=== PATIENT | female | born 1990 | race Caucasian/White ===

== ENCOUNTER → 2016-04-01 | Outpatient (CLI) | payer BC ==
[2016-04-01 17:12] LABS: CH 30.6; CHCM 34.6; HCT 39.5 % (34.0-46.0); HDW 2.53; HGB 13.7 gm/dL (11.4-16.0); MCH 30.7 pg (25.0-35.0); MCHC 34.6 g/dL (31.0-37.0); MCV 88.8 fL (80.0-100.0); Mean Platelet Volume 7.8; RBC 4.45 m/uL (3.80-5.40); WBC 10.6 k/uL (3.8-10.6)
[2016-04-01 17:22] LABS: Glucose 73 mg/dL (74-99); Non-African American GFR(MDRD) >60 (>60 ml/min/1.73 sqM)
[2016-04-01 17:53] LABS: Hepatitis B Surface Ag Index 0.08
--- NOTE | 2016-04-02 07:22 | US ---
EXAMINATION TYPE: US OB anatomy transabd DATE OF EXAM: 04/01/2016 4:37 PM COMPARISON: No previous HISTORY: Large for dates TECHNIQUE: Transabdominal (TA) EXAM MEASUREMENTS: GESTATIONAL AGE / DATING Physician Established: (19 weeks/2 days) EDC: 08/24/2016 Dates by LMP: Unknown Dates by First Scan: No previous here Dates by Current Scan for: (18 weeks/1 days) EDC: 09/01/2016 SURVEY IUP: Single PLACENTA: Posterior PREVIA: No previa FARRAH: 12.8 cm Normal CERVICAL LENGTH (transabdominal: norm > 3.0cm): 4.6 cm BIOMETRY PRESENTATION: Breech LIE: Transverse lie with head maternal left BPD: 3.9 cm 18 weeks / 0 days HC: 14.4 cm 17 weeks / 5 days AC: 12.3 cm 18 weeks / 0 days FL: 2.8 cm 18 weeks / 4 days ESTIMATED WEIGHT IN GRAMS: 227 grams ESTIMATED WEIGHT IN LBS/OZS: 0 lbs. 8 oz. WEIGHT PERCENTAGE BASED ON ESTABLISHED DATE: 5% HC/AC: 1.17 FL/AC: 23% HEART RATE: 167 bpm RHYTHM: Normal ANATOMY SEEN (within normal limits): * Lateral Vent (< 1 cm) 0.7 cm * Cisterna Magna (< 1.1 cm) 0.5 cm * Nuchal Fold (< 0.6 cm) 0.3 cm * Cerebellum (varies with age) 1.6 cm Choroid Plexus (bilateral) Midline Falx Cavus Septi Pellucidi Four Chamber Heart Outflow tracts: LVOT/RVOT Stomach Situs Nose / Lips Diaphragm Kidneys (bilateral) Bladder Cord Insert Three Vessel Cord Longitudinal Spine Transverse Spine Arms (bilateral) Legs (bilateral) Impression: Viable single IUP measuring 18 weeks 1 day with a heart rate of 167bpm and an estimated d elivery date of 09/01/2016
[2016-04-03 07:24] LABS: HIV-1/HIV-2 Ab Screen NONREAC (NON REAC)
== END | disposition home or self-care (01) ==
LOC: RADUSWWP 15:22
PROVIDERS: ATTEND Obstetrics & Gynecology
DX: O36.62X0 Maternal care for excessive fetal growth, second trimester, not applicable or unspecified (principal); Z3A.18 18 weeks gestation of pregnancy
CPT/HCPCS: 76811; 81220; 82105; 82565; 82677; 82947; 84702; 85027; 86336; 86762; 86780; 86850; 86900; 86901; 87340; 87389

== ENCOUNTER → 2016-04-27 | Outpatient (CLI) | payer BC ==
--- NOTE | 2016-04-27 13:40 | US ---
EXAMINATION TYPE: US OB anatomy transabd DATE OF EXAM: 04/27/2016 12:56 PM COMPARISON: See PACS HISTORY: SGA TECHNIQUE: Transabdominal (TA) FINDINGS: EXAM MEASUREMENTS: GESTATIONAL AGE / DATING Physician Established: (21 weeks/6 days) (reassigned on 04/01/16) EDC: 09/01/16 Dates by LMP: pt unsure Dates by First Scan: (21 weeks/6 days) EDC: 09/08/16 Dates by Current Scan: (20 weeks/6 days +/- 1W) EDC: 09/08/16 SURVEY IUP: Single PLACENTA: Posterior PREVIA: No previa FARRAH: 12.3 cm CERVICAL LENGTH (transabdominal: norm > 3.0cm): 4.3 cm BIOMETRY PRESENTATION: Breech BPD: 4.9 cm 21 weeks / 0 days HC: 18.6 cm 20 weeks / 6 days AC: 16.8 cm 21 weeks / 6 days FL: 3.4 cm 20 weeks / 6 days ESTIMATED WEIGHT IN GRAMS: 414.7 grams ESTIMATED WEIGHT IN LBS/OZS: 0 lbs. 15 oz. WEIGHT PERCENTAGE BASED ON ESTABLISHED DATE: 19 % HC/AC: 1.1 FL/AC: 20.5 HEART RATE: 163 bpm RHYTHM: Normal ANATOMY SEEN (within normal limits): Lateral Vent (< 1 cm) 7.9 mm Cisterna Magna Nuchal Fold (< 0.6 cm) 4.4 mm Cerebellum (varies with age) Choroid Plexus (bilateral) Midline Falx Cavus Septi Pellucidi Stomach Arms (bilateral) ANATOMY NOT SEEN or SUBOPTIMALLY VISUALIZED: Four Chamber Heart Outflow tracts: LVOT/RVOT Situs Bladder Longitudinal Spine Transverse Spine Three Vessel Cord Cord Insert Legs (bilateral) Nose / Lips Diaphragm Kidneys (bilateral) IMPRESSION: 1. Single live intrauterine with gestational age of 21 weeks 6 days as reassigned based on ultrasound of 04/01/2016. 2. Current ultrasound biometry places the gestational age at 20 weeks 6 days which is at the lower li mits of normal and just barely concordant. Current EFW relative to the reassigned gestational age is at the 19th percentile. Continued follow-up recommended.
== END | disposition home or self-care (01) ==
LOC: RADUSWWP 12:10
PROVIDERS: ATTEND Obstetrics & Gynecology
DX: O36.5920 Maternal care for other known or suspected poor fetal growth, second trimester, not applicable or unspecified (principal); Z3A.21 21 weeks gestation of pregnancy
CPT/HCPCS: 76811

== ENCOUNTER → 2016-05-25 | Outpatient (CLI) | payer BC ==
[2016-05-25 14:42] LABS: CH 31.1; CHCM 33.4; HCT 39.3 % (34.0-46.0); HDW 2.48; HGB 13.1 gm/dL (11.4-16.0); MCH 31.1 pg (25.0-35.0); MCHC 33.2 g/dL (31.0-37.0); MCV 93.6 fL (80.0-100.0); Mean Platelet Volume 8.7; RDW 13.4 % (11.5-15.5); WBC 12.9 k/uL (3.8-10.6)
== END | disposition home or self-care (01) ==
LOC: LABWHC1 13:22
PROVIDERS: ATTEND Obstetrics & Gynecology
DX: Z34.02 Encounter for supervision of normal first pregnancy, second trimester (principal); Z3A.00 Weeks of gestation of pregnancy not specified
CPT/HCPCS: 36415; 82950; 85027

== ENCOUNTER 2016-08-17 10:32 | Outpatient (CLI) | payer BC ==
[2016-08-17 10:43] VITALS: BP 140/89; PULSE 86; TEMP 97.8
[2016-08-17 11:38] VITALS: RESP 18
--- NOTE | 2016-08-17 17:38 | P.MSEPDOC ---
Presenting Problems - Arrival Data Date of Arrival on Unit: 08/17/16 Time of Arrival on Unit: 10:36 Mode of Transport: Ambulatory - Complaint OB-Reason for Admission/Chief Complaint: Rule Out SROM Comment: Pt here complaining of increase in vagnial fluid that started during the night Medical History - Information : 1 Para: 0 Term: 0 : 0 Abortions: Spontaneous or Elective: 0 Number of Living Children: 0 - Gestational Age Expected Date of Delivery: 08/28/16 Gestational Age by LESLI (wks/days): 38 Weeks and 3 Days Review of Systems - Review of Systems Constitutional: No problems Breast: No problems ENT: No problems Cardiovascular: No problems Respiratory: No problems Gastrointestinal: No problems Genitourinary: No problems Musculoskeletal: No problems Neurological: No problems Skin: No problems Vital Signs - Temperature Temperature: 97.8 F Temperature Source: Oral - Pulse Brachial Pulse Rate: 86 Pulse Assessment Method: Automatic Cuff - Respirations Respiratory Rate: 18 Oxygen Delivery Method: Room Air - Blood Pressure Right Arm Sitting Blood Pressure: 140/89 Blood Pressure Mean: 106 Blood Pressure Source: Automatic Cuff Medical Screen Scoring (Pre) - Cervical Exam Dilation: 1-3 cm = 1 Effacement: More than 50% = 2 Membranes: Intact - Uterine Contractions Frequency: > 5 minutes apart = 1 Duration: > 40 seconds = 2 - Maternal Vital Signs Maternal Temperature: N/A Maternal Blood Pressure: N/A Signs of Preeclampsia: N/A Maternal Respirations: N/A - Maternal Trauma Maternal Trauma: N/A - Assessment Baseline FHR: 130 Heart Rate - NICHD Category: Category I (Normal) = 0 NST: Reactive Position: N/A - Total Score Total Score (Pre): 6 - Level of Risk Level of Risk: Medium (6-9) Physician Notification (Pre) - Physician Notified Physician Notified Date: 08/17/16 Physician Notified Time: 11:19 Physician/Practitioner Notifed:: Dr Bruno Spoke With: Dr Bruno New Order Received: Yes - Notification Comment Comment: Amnisure negative, no leaking of fluids noted during or after vaginal exam. Medical Screen Scoring (Post) - Cervical Exam Dilation: 1-3 cm = 1 Effacement: More than 50% = 2 Membranes: Intact - Uterine Contractions Frequency: > 5 minutes apart = 1 Duration: > 40 seconds = 2 Intensity: N/A - Maternal Vital Signs Maternal Temperature: N/A Maternal Blood Pressure: N/A Signs of Preeclampsia: N/A Maternal Respirations: N/A - Maternal Trauma Maternal Trauma: N/A - Assessment Heart Rate: 130 Heart Rate - NICHD Category: Category I (Normal) = 0 NST: Reactive Position: N/A Station: N/A - Total Score Total Score (Post): 6 - Post Treatment Level of Risk Post Treatment Level of Risk: Medium (6-9) Physician Notification (Post) - Physician Notified Physician Notified Date: 08/17/16 Physician Notified Time: 11:19 Spoke With: Dr Bruno - Notification Comment Comment: Negative Amnisure Disposition - Disposition OB Disposition: Discharge to home Discharge Date: 08/17/16 Discharge Time: 11:25 I agree with the RN Medical Screening Exam: Yes Risk & Benefit of care provided described in d/c instruction: Yes Diagnosis: FALSE LABOR AT OR AFTER 37 COMPLETED WEEKS OF GESTATION
== END 2016-08-17 11:25 | disposition home or self-care (01) ==
LOC: FBPOP 10:32
PROVIDERS: ATTEND Obstetrics & Gynecology
DX: O47.1 False labor at or after 37 completed weeks of gestation (principal); Z3A.38 38 weeks gestation of pregnancy
CPT/HCPCS: 59025; 84112; 99213

== ENCOUNTER 2016-08-21 22:51 | Outpatient (CLI) | payer BC ==
[2016-08-21 23:07] VITALS: BP 141/82; PULSE 73; RESP 16; TEMP 97
--- NOTE | 2016-10-06 17:40 | P.MSEPDOC ---
Presenting Problems - Arrival Data Date of Arrival on Unit: 08/21/16 Time of Arrival on Unit: 22:51 Mode of Transport: Wheelchair - Complaint OB-Reason for Admission/Chief Complaint: Possible Onset of Labor Comment: Contractions that started around 1900 that have gotten progressively closer together and stronger in nature. Medical History - Information : 1 Para: 0 Term: 0 : 0 Abortions: Spontaneous or Elective: 0 Number of Living Children: 0 - Gestational Age Expected Date of Delivery: 09/01/16 Gestational Age by LESLI (wks/days): 45 Weeks and 0 Days Review of Systems - Review of Systems Constitutional: No problems Breast: No problems ENT: No problems Cardiovascular: No problems Respiratory: No problems Gastrointestinal: No problems Genitourinary: No problems Musculoskeletal: No problems Neurological: No problems Skin: No problems Vital Signs - Temperature Temperature: 97.0 F Temperature Source: Temporal Artery Scan - Pulse Pulse Oximetery Pulse Rate: 73 Pulse Assessment Method: Automatic Cuff - Respirations Respiratory Rate: 16 Oxygen Delivery Method: Room Air - Blood Pressure Sitting Blood Pressure: 141/82 Blood Pressure Mean: 101 Blood Pressure Source: Automatic Cuff Medical Screen Scoring (Pre) - Cervical Exam Dilation: 1-3 cm = 1 Membranes: Intact - Uterine Contractions Frequency: N/A Duration: N/A Intensity: N/A - Maternal Vital Signs Maternal Temperature: N/A Maternal Blood Pressure: N/A Signs of Preeclampsia: N/A Maternal Respirations: N/A - Maternal Trauma Maternal Trauma: N/A - Assessment Baseline FHR: 145 Heart Rate - NICHD Category: Category I (Normal) = 0 NST: Reactive Position: N/A Station: N/A - Total Score Total Score (Pre): 1 - Level of Risk Level of Risk: Low (0-5) Medical Screen Scoring (Post) - Cervical Exam Dilation: 1-3 cm = 1 Effacement: More than 50% = 2 Membranes: Intact - Uterine Contractions Frequency: N/A Duration: N/A Intensity: N/A - Maternal Vital Signs Maternal Temperature: N/A Maternal Blood Pressure: N/A Signs of Preeclampsia: N/A Maternal Respirations: N/A - Maternal Trauma Maternal Trauma: N/A - Assessment Heart Rate: 150 Heart Rate - NICHD Category: Category I (Normal) = 0 NST: Reactive Position: N/A Station: N/A - Total Score Total Score (Post): 3 - Post Treatment Level of Risk Post Treatment Level of Risk: Low (0-5) Physician Notification (Post) - Physician Notified Physician Notified Date: 08/22/16 Physician Notified Time: 00:15 Physician/Practitioner Notified:: Dr. Bruno - Notification Comment Comment: Orders given to give patient the option to stay and be observed for another hour or to be discharged home with instructions and return when symptoms worsen Disposition - Disposition OB Disposition: Discharge to home, Written follow up instructions reviewed Discharge Date: 08/22/16 Discharge Time: 00:22 I agree with the RN Medical Screening Exam: Yes Risk & Benefit of care provided described in d/c instruction: Yes Diagnosis: FALSE LABOR AT OR AFTER 37 COMPLETED WEEKS OF GESTATION
== END 2016-08-22 00:22 | disposition home or self-care (01) ==
LOC: FBPOP 22:51
PROVIDERS: ATTEND Obstetrics & Gynecology
DX: O47.1 False labor at or after 37 completed weeks of gestation (principal); Z3A.49 Greater than 42 weeks gestation of pregnancy
CPT/HCPCS: 59025; 99213

== ENCOUNTER 2016-08-22 21:33 | Inpatient (IN) | payer BC ==
[2016-08-22] MEDS ORDERED: CARBOPROST TROMETHAMINE 250 MCG/ML 1 ML AMP IM PRN (21:43)
[2016-08-22] MEDS ORDERED: TERBUTALINE 1 MG/ML VIAL SQ PRN (21:43)
[2016-08-22] MEDS ORDERED: OXYTOCIN 10 UNIT/ML 1 ML VIAL IM PRN (21:43)
[2016-08-22] MEDS ORDERED: METHYLERGONOVINE 0.2 MG/ML 1 ML AMP IM PRN (21:43)
[2016-08-22] MEDS ORDERED: LIDOCAINE 1% (PF) 10 MG/ML (30 ML SDV) SQ PRN (21:43)
[2016-08-22] MEDS ORDERED: SODIUM CHLORIDE 0.9% 100 ML BAG ONE (21:59)
[2016-08-22] MEDS ORDERED: BUPIVACAINE (PF) 0.25% 30 ML VIAL ONE (21:59)
[2016-08-22] MEDS ORDERED: fentaNYL (PF) 50 MCG/ML 5 ML AMP ONE (21:59)
[2016-08-22] MEDS: LACTATED RINGERS 1,000 ML IV SCH ×2 (22:00→22:21)
[2016-08-22 22:27] LABS: Basophils % (A) 0 %; CH 31.5; CHCM 34.7; Eosinophils % (A) 0 %; HGB 14.4 gm/dL (11.4-16.0); Luc # (Auto) 0.24; Luc % (Auto) 2; Lymphocytes # (A) 1.9 k/uL (1.0-4.8); Lymphocytes % (A) 13 %; MCH 31.2 pg (25.0-35.0); MCHC 34.3 g/dL (31.0-37.0); MCV 91.1 fL (80.0-100.0); Mean Platelet Volume 9.8; Monocytes # (A) 0.7 k/uL (0-1.0); Monocytes % (A) 4 %; Neutrophils % (A) 81 %; RBC 4.61 m/uL (3.80-5.40); RDW 13.5 % (11.5-15.5); WBC 14.8 k/uL (3.8-10.6); WBC (Perox) 14.87
[2016-08-22] MEDS ORDERED: BUPIVACAINE (PF) 0.25% 25 ML, fentaNYL (PF) 200 MCG in SODIUM CHLORIDE 0.9% 71 ML EPIDURAL ONE (22:32)
--- NOTE | 2016-08-22 22:34 | P.HPOB ---
History of Present Illness H&P Date: 08/22/16 Chief Complaint: Contractions This is a 26-year-old female 1 para 0 with an estimated date of confinement of 09/01/2016, estimated gestational age of 38-4/7 weeks, who presents to labor and delivery complaining of contractions that started yesterday evening and became stronger and more consistent through the day today. She denies any rupture of membranes. course is been uncomplicated. labs: Cystic fibrosis screening-negative HIV-nonreactive Quad screen-negative Obstetrical ultrasound-normal anatomy Random glucose-73 Hepatitis B surface antigen-negative Hemoglobin-13.7 Syphilis antibody-negative nonreactive Rubella-low positive Blood type-A+ Antibody screen-negative One hour Glucola-107 Group B streptococcus-negative Obstetrical history: First Gynecologic history: No history of sexual transmitted diseases Social history: She is and works as a RN. Review of Systems Constitutional: Denies chills, Denies fever Eyes: denies blurred vision, denies pain Ears, nose, mouth and throat: Denies headache, Denies sore throat Cardiovascular: Reports shortness of breath, Denies chest pain Respiratory: Denies cough Gastrointestinal: Reports abdominal pain (Contractions) Genitourinary: Reports pelvic pain, Reports Musculoskeletal: Reports low back pain Integumentary: Reports as per HPI Neurological: Denies numbness, Denies weakness Psychiatric: Denies anxiety, Denies depression Past Medical History Past Medical History: No Reported History History of Any Multi-Drug Resistant Organisms: None Reported Additional Past Surgical History / Comment(s): wisdom teeth, left thigh mole removal Past Anesthesia/Blood Transfusion Reactions: No Reported Reaction Past Psychological History: No Psychological Hx Reported Smoking Status: Never smoker Past Alcohol Use History: None Reported Past Drug Use History: None Reported - Past Family History Mother Family Medical History: Cancer, Hypertension Additional Family Medical History / Comment(s): breast cancer Sister(s) Family Medical History: Hypertension Additional Family Medical History / Comment(s): liver transplant at 6 mos old Medications and Allergies Home Medications Medication Instructions Recorded Confirmed Type Pka-Gpgv-Laxxk Acid 1 cap PO DAILY 08/17/16 08/22/16 History [-U Capsule (formulary)] Allergies Allergy/AdvReac Type Severity Reaction Status Date / Time No Known Allergies Allergy Verified 08/22/16 21:42 Exam Osteopathic Statement: *. No significant issues noted on an osteopathic structural exam other than those noted in the History and Physical/Consult. - Vital Signs Vital signs: Vital Signs Temp Pulse Resp BP Pulse Ox 08/22/16 21:52 96.4 F L 70 20 142/77 98 08/22/16 21:44 96.4 F L 70 20 142/77 98 Intake and Output 08/22/16 08/22/16 08/22/16 06:59 14:59 22:59 Intake Total 1000 Balance 1000 Intake: Intake, IV Titration 1000 Amount Lactated Ringers 1,000 ml 1000 @ 125 mls/hr IV .Q8H [facility], [facility] Rx#:[id number] Other: # Voids 1 Weight 87.09 kg Patient Weight 08/23/16 06:59 Weight 87.09 kg HEENT: Within normal limits Heart: Regular rate and rhythm Lungs: Her to auscultation bilaterally Abdomen: Cervix: Initially in triage to 6-7 cm. Currently she is 7-8 cm/100%/-1 station. Extremities: Negative Homans Assessment and Plan (1) 38 weeks gestation of Status: Acute (2) Normal labor Status: Acute Plan: Admission for active labor. Epidural anesthesia if desired. Expectant management.
--- NOTE | 2016-08-22 22:36 | P.MSEPDOC ---
Presenting Problems - Arrival Data Date of Arrival on Unit: 08/22/16 Time of Arrival on Unit: 21:33 Mode of Transport: Wheelchair - Complaint OB-Reason for Admission/Chief Complaint: Possible Onset of Labor Medical History - Information : 1 Para: 0 Term: 0 : 0 Abortions: Spontaneous or Elective: 0 Number of Living Children: 0 - Gestational Age Expected Date of Delivery: 09/01/16 Gestational Age by LESLI (wks/days): 38 Weeks and 4 Days Review of Systems - Review of Systems Constitutional: No problems Breast: No problems ENT: No problems Cardiovascular: No problems Respiratory: No problems Gastrointestinal: No problems Genitourinary: No problems Musculoskeletal: No problems Neurological: No problems Skin: No problems Vital Signs - Temperature Temperature: 96.4 F Temperature Source: Temporal Artery Scan - Pulse Right Pulse Rate: 70 Pulse Assessment Method: Pulse Oximetry - Respirations Respiratory Rate: 20 O2 Sat by Pulse Oximetry: 98 - Blood Pressure Right Arm Blood Pressure: 142/77 Blood Pressure Mean: 98 Blood Pressure Source: Automatic Cuff Medical Screen Scoring (Pre) - Cervical Exam Dilation: 4-7 cm = 2 Effacement: More than 50% = 2 Membranes: Intact - Uterine Contractions Frequency: > or = 36 weeks =2 Duration: > 40 seconds = 2 Intensity: Contraction palpated strong = 1 - Maternal Vital Signs Maternal Temperature: N/A Maternal Blood Pressure: N/A Signs of Preeclampsia: N/A Maternal Respirations: N/A - Maternal Trauma Maternal Trauma: N/A - Assessment Baseline FHR: 130 Heart Rate - NICHD Category: Category I (Normal) = 0 NST: Reactive Position: N/A - Total Score Total Score (Pre): 9 - Level of Risk Level of Risk: Medium (6-9) Physician Notification (Pre) - Physician Notified Physician Notified Date: 08/22/16 Physician Notified Time: 21:41 Physician/Practitioner Notifed:: Dr Bruno - Notification Comment Comment: reported on pts labor c/o, pain, vitals, vag exam, prentatal hx. orders to admit, start iv, pt may have stadol or epidural, and Dr Bruno will be on her way in Disposition - Disposition OB Disposition: Admit, LDRP Suite I agree with the RN Medical Screening Exam: Yes Risk & Benefit of care provided described in d/c instruction: Yes Diagnosis: ENCOUNTER FOR FULL-TERM UNCOMPLICATED DELIVERY
[2016-08-23] MEDS: LACTATED RINGERS 1,000 ML IV SCH (01:01)
--- NOTE | 2016-08-23 04:04 | P.PROBDLV ---
Vaginal Delivery Note - . Vaginal Delivery Note: The patient progressed to complete dilation after oxytocin augmentation of labor and artificial rupture membranes with clear fluid noted. She did receive epidural anesthesia. Once reaching complete dilation, she began pushing. She pushed for little over 2 hours. 's head came to a crown. Perineum was anesthetized with 1% lidocaine and midline episiotomy was cut. With one further push, the 's head delivered across the perineum followed by the anterior shoulder. Nose and mouth were bulb suctioned at the perineum. Nuchal cord times one was reduced around the was one further push. was placed on mother's abdomen and cord was clamped and cut. was taken to warmer for evaluation. A viable female infant was noted with scores of 9 at 1 minute and 9 at 5 minutes and infant weight of 7 lbs. 0 oz. Placenta delivered shortly thereafter, intact, with a three-vessel cord. Uterus contracted well after oxytocin was given and uterine massage was carried out. Inspection of the perineum revealed a midline episiotomy with no further extension. This area was anesthetized with 1% lidocaine and then sutured with 30 and 2-0 Vicryl suture in the usual multilayer fashion. Estimated blood loss is approximately 150 mL's. Both mother and are in stable condition.
[2016-08-23] MEDS ORDERED: Acetaminophen-Codeine 300-30mg TAB PO PRN ×2 (04:08)
[2016-08-23] MEDS ORDERED: ACETAMINOPHEN TAB 325 MG TAB PO PRN (04:08)
[2016-08-23] MEDS ORDERED: ZOLPIDEM 5 MG TAB PO PRN (04:08)
[2016-08-23] MEDS ORDERED: diphenhydrAMINE 50 MG CAP PO PRN (04:08)
[2016-08-23] MEDS ORDERED: OXYTOCIN 20 UNITS/1000 ML NS 1,000 ML IV SCH (04:08)
[2016-08-23] MEDS ORDERED: MEASLES-MUMPS-RUBELLA VACC/PF 12,500 UNIT/0.5 ML VIAL SQ ONE (04:08)
[2016-08-23] MEDS ORDERED: HYDROCORTISONE 2.5% RECTAL CREAM 30 GM TUBE RECTAL PRN (04:08)
[2016-08-23] MEDS ORDERED: diphenhydrAMINE 50 MG/ML 1 ML VIAL IVP PRN ×2 (04:08)
[2016-08-23] MEDS ORDERED: LANOLIN CREAM 5 GM TUBE TOPICAL PRN (04:08)
[2016-08-23] MEDS ORDERED: SIMETHICONE 80 MG CHEWABLE PO PRN (04:08)
[2016-08-23] MEDS ORDERED: WITCH HAZEL 1 EACH MED..PAD TOPICAL PRN (04:08)
[2016-08-23] MEDS ORDERED: diphenhydrAMINE 25 MG CAP PO PRN (04:08)
[2016-08-23] MEDS ORDERED: BENZOCAINE/MENTHOL SPRAY 1 GM/SPRAY AEROSOL TOPICAL PRN (04:08)
[2016-08-23] MEDS: IBUPROFEN 600 MG TAB PO PRN ×2 (04:23→19:23)
[2016-08-23] MEDS: SENNOSIDES-DOCUSATE SODIUM 1 EACH TAB PO SCH ×2 (08:12→19:24)
[2016-08-23 08:24] LABS: Basophils % (A) 0 %; CH 31.2; CHCM 34.6; Eosinophils % (A) 0 %; HCT 37.8 % (34.0-46.0); HDW 2.51; HGB 12.9 gm/dL (11.4-16.0); Luc # (Auto) 0.22; Luc % (Auto) 1; Lymphocytes # (A) 1.2 k/uL (1.0-4.8); Lymphocytes % (A) 6 %; MCH 30.9 pg (25.0-35.0); MCV 90.7 fL (80.0-100.0); Mean Platelet Volume 9.6; Monocytes # (A) 0.9 k/uL (0-1.0); Monocytes % (A) 5 %; Neutrophils % (A) 88 %; RBC 4.17 m/uL (3.80-5.40); RDW 13.1 % (11.5-15.5); WBC 19.4 k/uL (3.8-10.6); WBC (Perox) 20.61
[2016-08-23 17:34] VITALS: RESP 16
[2016-08-24 07:34] VITALS: BP 128/74; PULSE 67; TEMP 98
--- NOTE | 2016-08-24 08:37 | P.DS ---
Providers Date of admission: 08/22/16 21:43 Expected date of discharge: 08/24/16 Attending physician: Maria Fernanda Bruno Primary care physician: Stated None - Discharge Diagnosis(es) (1) 38 weeks gestation of Current Visit: Yes Status: Acute (2) Normal labor Current Visit: Yes Status: Acute Hospital Course: This is a 26-year-old female 1 para 0 at 38-5/7 weeks who presented in active labor. She underwent artificial rupture membranes and delivered vaginally a viable female on 08/23/2016 with scores of 9 at 1 minute and 9 at 5 minutes and infant weight of 7 lbs. 0 oz. Her course has been uncomplicated. She is breast-feeding. Lochia is decreasing. Pain is well-controlled with ibuprofen. Vital signs are stable. Abdomen is soft with fundus firm and nontender. Extremities show negative Homans. Impression is status post vaginal delivery day #1. Plan is to discharge home today. She will be given ibuprofen and breast pump prescriptions. She is advised to follow up in the office in 6 weeks for check. She is advised to call the office if she has any further questions or concerns prior to her appointment time. Procedures: Oxytocin augmentation of labor Spontaneous vaginal delivery of a viable female infant on 08/23/2016 Patient Condition at Discharge: Stable Plan - Discharge Summary New Discharge Prescriptions: New Ibuprofen [Motrin] 600 mg PO Q6HR PRN #60 tab PRN Reason: Mild Pain Or Fever >= 100.5 Continue Lnu-Otbn-Wltoj Acid [-U Capsule (formulary)] 1 cap PO DAILY Discharge Medication List Zyj-Nqif-Wnggy Acid [-U Capsule (formulary)] 1 cap PO DAILY 12/24 [History] Ibuprofen [Motrin] 600 mg PO Q6HR PRN #60 tab 08/24/16 [Rx] Activity/Diet/Wound Care/Special Instructions: Instructions 1. Do not begin any exercise program for 3 weeks. 2. Do not resume sexual relations for 3 weeks or longer if uncomfortable. 3. You may take tub baths or showers at any time. 4. You may use tampons if desired after 3 weeks. 5. Keep the area of episiotomy (stitches) clean and dry. 6. If you are not nursing, wear a good fitting, supportive bra during the day and limit fluid intake for at least 1 week to prevent breast engorgement. 7. Call the office, [phone], within the next week to make appointment for your 6 week checkup if it has not already been made. 8. Report any of the following occurrences to the doctor promptly: a. Heavy, excessive bleeding b. Chills, fever c. Burning or frequency of urination d. Pain or redness and breasts if nursing e. Increasing pain or swelling in episiotomy (stitches). In addition to the above instructions, the following additional should be followed: 1. No heavy lifting or straining (exercising) until after 6 week checkup. 2. Keep abdominal incision clean and dry: You may wear a dressing if more comfortable. 3. Make office appointment for 10 days after going home or as instructed by her doctor. Discharge Disposition: HOME SELF-CARE
== END 2016-08-24 10:20 | disposition home or self-care (01) | DRG 775 ==
LOC: FBPOP 21:33 → 4FBP 21:43
PROVIDERS: ADMIT Obstetrics & Gynecology; ATTEND Obstetrics & Gynecology
PROC: 10E0XZZ Delivery of Products of Conception, External Approach (ICD-10-PCS; principal; 2016-08-23)
PROC: 0W8NXZZ Division of Female Perineum, External Approach (ICD-10-PCS; 2016-08-23)
PROC: 10907ZC Drainage of Amniotic Fluid, Therapeutic from Products of Conception, Via Natural or Artificial Opening (ICD-10-PCS; 2016-08-23)
PROC: 3E0134Z Introduction of Serum, Toxoid and Vaccine into Subcutaneous Tissue, Percutaneous Approach (ICD-10-PCS; 2016-08-23)
PROC: 3E0S3NZ Introduction of Analgesics, Hypnotics, Sedatives into Epidural Space, Percutaneous Approach (ICD-10-PCS; 2016-08-23)
DX: O69.81X0 Labor and delivery complicated by cord around neck, without compression, not applicable or unspecified (principal); Z23 Encounter for immunization; Z80.3 Family history of malignant neoplasm of breast; Z82.49 Family history of ischemic heart disease and other diseases of the circulatory system; Z3A.38 38 weeks gestation of pregnancy; Z37.0 Single live birth; Z83.79 Family history of other diseases of the digestive system
CPT/HCPCS: 85025; 88307; 90707; 99213

== ENCOUNTER 2018-03-26 12:23 | Emergency (ER) | payer BC ==
[2018-03-26] MEDS ORDERED: SODIUM CHLORIDE 0.9% 1,000 ML IV STA (12:51)
[2018-03-26] MEDS ORDERED: ONDANSETRON 4 MG/2 ML VIAL IVP STA (13:11)
[2018-03-26 13:20] LABS: Appearance,Urine Cloudy (Clear); Bacteria,Urine Moderate /hpf; Bilirubin,Urine Negative (Negative); Blood,Urine Small (Negative); Color,Urine Yellow; Glucose,Urine (UA) Negative (Negative); Ketones,Urine 2+ (Negative); Leukocyte Esterase,Urine Small (Negative); Mucus,Urine Occasional /hpf; Nitrite,Urine Negative (Negative); Protein,Urine Trace (Negative); RBC,Urine 21 /hpf (0-5); Squamous Epithelial Cell,Urine 3 /hpf (0-4); Urobilinogen,Urine <2.0 mg/dL (<2.0); WBC,Urine 3 /hpf (0-5)
[2018-03-26] MEDS ORDERED: ACETAMINOPHEN TAB 325 MG TAB PO STA (13:24)
[2018-03-26 13:44] LABS: Basophils # (A) 0.1 k/uL (0-0.2); Basophils % (A) 0 %; Eosinophils # (A) 0.1 k/uL (0-0.7); Eosinophils % (A) 0 %; HCT 43.3 % (34.0-46.0); Lymphocytes # (A) 2.7 k/uL (1.0-4.8); Lymphocytes % (A) 15 %; MCHC 34.7 g/dL (31.0-37.0); MCV 86.5 fL (80.0-100.0); Mean Platelet Volume 7.7; Monocytes # (A) 0.7 k/uL (0-1.0); Monocytes % (A) 4 %; Neutrophils % (A) 80 %; Platelet Count 353 k/uL (150-450); RDW 13.2 % (11.5-15.5); WBC 18.7 k/uL (3.8-10.6)
[2018-03-26] MEDS ORDERED: cefTRIAXone 1,000 MG VIAL (IM USE) IM STA (13:50)
[2018-03-26 14:03] LABS: ALT 30 U/L (9-52); AST 20 U/L (14-36); Albumin 3.9 g/dL (3.5-5.0); Alkaline Phosphatase 71 U/L (38-126); Amylase 73 U/L (30-110); Anion Gap 13 mmol/L; Blood Urea Nitrogen 12 mg/dL (7-17); Calcium 9.4 mg/dL (8.4-10.2); Carbon Dioxide 17 mmol/L (22-30); Chloride 108 mmol/L (98-107); Glucose 101 mg/dL (74-99); Lipase 87 U/L (23-300); Potassium 3.5 mmol/L (3.5-5.1); Sodium 138 mmol/L (137-145); Total Bilirubin 0.5 mg/dL (0.2-1.3); Total Protein 6.7 g/dL (6.3-8.2)
--- NOTE | 2018-03-26 14:12 | US ---
EXAMINATION TYPE: Ultrasound OB <= 14 week fetus DATE OF EXAM: 03/26/2018 COMPARISON: NONE CLINICAL HISTORY: 27-year-old female pain. Left flank and pelvic pain x 1 day, 2, para 1 EXAM PERFORMED: Transabdominal (TA) FINDINGS: EXAM MEASUREMENTS: GESTATIONAL AGE / DATING Physician Established: (9 weeks/0 days) EDC: 10/29/2018 Dates by LMP: (9 weeks/0 days) EDC: 10/29/2018 Dates by First Scan: This is 1st scan Dates by Current Scan for: (9 weeks/2 days) EDC: 10/27/2018 MATERNAL ANATOMY Uterus: 11.3 x 6.7 x 7.2cm, retroverted Right Ovary: 3.6 x 2.0 x 2.1cm Left Ovary: 3.5 x 2.0 x 2.2cm Post CDS / Adnexa: wnl Presence of free fluid: no Presence of corpus luteal cyst: not seen Presence of subchorionic bleed: no GESTATION / SURVEY CRL: 2.6cm (9 weeks/2 days) Yolk Sac (normal less than 6mm): 4.8mm Heart Rate: 165 bpm Rhythm: Normal IUP: Viable IUP Date of LMP: 01/22/2018 Beta HcG (if available): Not available at time of exam. Senior [facility] Consultant notes: Viable single IUP measuring 9 weeks 2 days with a heart rate of 165bpm and an alli mated delivery date of 10/27/2018. IMPRESSION: 1. Single live intrauterine with estimated gestational age of 9 weeks 0 days by LMP. Curren t ultrasound biometry is concordant (9 weeks 2 days). 2. Complete survey recommended at 18-20 weeks.
--- NOTE | 2018-03-26 14:16 | US ---
EXAMINATION TYPE: US kidneys/renal and bladder DATE OF EXAM: 03/26/2018 COMPARISON: NONE CLINICAL HISTORY: Pain. Left flank and pelvic pain, patient is 9 week EXAM MEASUREMENTS: Right Kidney: 10.5 x 4.4 x 5.4 cm Left Kidney: 11.2 x 5.9 x 5.4 cm Right Kidney: no hydronephrosis or masses seen Left Kidney: no hydronephrosis or masses seen Bladder: not fully distended Bilateral Jets seen: right jet seen, left jet not seen There is no evidence for hydronephrosis at this point in time. No nephrolithiasis is seen. No amee s are identified. The urinary bladder is anechoic. Bilateral ureteral jets are seen. IMPRESSION: No evidence of renal mass or obstruction.
[2018-03-26 14:59] VITALS: RESP 18
[2018-03-26] MEDS ORDERED: SODIUM CHLORIDE 0.9% 1,000 ML IV ONE (15:30)
--- NOTE | 2018-03-26 15:31 | ED ---
Abdominal Pain HPI - General Chief Complaint: Abdominal Pain Stated Complaint: flank pain/8 wks preg Time Seen by Provider: 03/26/18 12:50 Source: patient Mode of arrival: ambulatory Limitations: no limitations - History of Present Illness Initial Comments: 27-year-old female with last menstrual period mid January, positive test estimated 8 weeks with no confirmed intrauterine , presents today for chief complaint of left sided abdominal pain and radiation to left side and back. Patient presents today for evaluation of left- sided abdominal pain which is mostly lower that wraps around towards left flank. Pt concerned about ectopic . Pt denies dysuria, urgency, frequency, fever, chills, diarrhea, vomiting, headache, visual changes. Patient does admit to nausea. Patient denies any vaginal bleeding or vaginal discharge. Patient denies any chest pain, dyspnea, dyspnea on exertion. Patient denies history of kidney stones. Patient denies taking any medication for the pain. Upon arrival patient appears uncomfortable, ultrasound was called to r/o ectopic . Remaining ROS (-). - Related Data Home Medications Medication Instructions Recorded Confirmed [id number] Acid 1 cap PO DAILY 08/17/16 03/26/18 [-U Capsule (formulary)] Previous Rx's Medication Instructions Recorded Cephalexin [Keflex] 500 mg PO Q12HR 5 Days #10 cap 03/26/18 Allergies Allergy/AdvReac Type Severity Reaction Status Date / Time No Known Allergies Allergy Verified 03/26/18 14:19 Review of Systems ROS Statement: Those systems with pertinent positive or pertinent negative responses have been documented in the HPI. ROS Other: All systems not noted in ROS Statement are negative. Past Medical History Past Medical History: No Reported History History of Any Multi-Drug Resistant Organisms: None Reported Additional Past Surgical History / Comment(s): wisdom teeth, left thigh mole removal Past Anesthesia/Blood Transfusion Reactions: No Reported Reaction Past Psychological History: No Psychological Hx Reported Smoking Status: Never smoker Past Alcohol Use History: None Reported Past Drug Use History: None Reported - Past Family History Mother Family Medical History: Cancer, Hypertension Additional Family Medical History / Comment(s): breast cancer Sister(s) Family Medical History: Hypertension Additional Family Medical History / Comment(s): liver transplant at 6 mos old General Exam - General Exam Comments Initial Comments: General: The patient is awake and alert, appears uncomfortable. Eye: Pupils are equal, round and reactive to light, extra-ocular movements are intact. No nystagmus. There is normal conjunctiva bilaterally. No signs of icterus. Ears, nose, mouth and throat: There are moist mucous membranes and no oral lesions. Neck: The neck is supple, there is no tenderness or JVD. Cardiovascular: There is a regular rate and rhythm. No murmur, rub or gallop is appreciated. Respiratory: Lungs are clear to auscultation, respirations are non-labored, breath sounds are equal. No wheezes, stridor, rales, or rhonchi. Gastrointestinal: No noted diaphoresis, jaundice, pallor, protecting postures or squirming. Symmetrical pigmentation of abdomen without signs of inflammation.. Umbilicus mildline, inverted without swelling. No dilated veins. No noted abdominal distention. No visible masses. No peristalsis, aortic pulsations, or ventral hernia. Bowel sounds audible in all 4 quadrants, unremarkable. No friction rubs or venous hums. No epigastic, hepatic or abdominal bruits. Tenderness to deep palpation of the left side of abdomen, including LUQ. Liver edge, not palpable. Spleen edge, right and left kidney not palpable. Superior bladder margin non-tender. Special Testing: Negative McBurney, Uyen, cutaneous hyperesthesia. Negative Heel Jar test.. No CVA tenderness. Digital rectal exam deferred. Negative costa turners or cullens sign Pelvic exam; normal external exam no external lesions. Nelagoney moist well rugated vaginal mucosa. No discharge or bleeding, cervical os closed. No significant adnexal tenderness, no chandelier sign. Musculoskeletal: Normal ROM, no tenderness. Strength 5/5. Sensation intact. Pulses equal bilaterally 2+. Neurological: A&O x 3. CN II-XII intact, There are no obvious motor or sensory deficits. Coordination appears grossly intact. Speech is normal. Skin: Skin is warm and dry and no rashes or lesions are noted. Psychiatric: Cooperative, appropriate mood & affect, normal judgment. Limitations: no limitations Course Vital Signs 03/26/18 03/26/18 03/26/18 12:44 14:50 16:29 Temperature 97.5 F L 97.8 F 97.6 F Pulse Rate 84 73 101 H Respiratory 16 18 18 Rate Blood Pressure 148/88 139/80 130/81 O2 Sat by Pulse 98 100 98 Oximetry 03/26/18 16:30 Temperature Pulse Rate 89 Respiratory Rate Blood Pressure O2 Sat by Pulse Oximetry Medical Decision Making - Medical Decision Making 27-year-old female presenting today for left-sided abdominal pain labs revealed leukocytosis, urine revealed red blood cells as well as bacteria. Upon initial history taking patient states she has no dysuria however she states that she just went to the bathroom she had urgency. Patient was given Tylenol, this significantly alleviate symptoms. Patient appeared comfortable bed. Ultrasound revealed normal adnexa, viable intrauterine pricey 9 weeks 2 days with no free fluid in the posterior cul-de-sac and no evidence of ectopic . No evidence of ovarian torsion. Upon repeat examination after demonstration of Tylenol patient had less tender abdomen. I did discuss CT imaging, patient elected to defer at this time stating she would return for any worsening symptoms. Patient states she is significantly less tender. Differential diagnosis includes renal calculi, that may have passed the patient admits some urgency during urination while in the emergency department. At this time patient is requesting discharge, she was given 2 L of IV fluids. I did discuss the case attending fighter Dr. De Souza who agrees impression and plan as well as patient's discharge. Patient is aware of all return parameters which are strict with immediate return for any worsening, concerning symptoms or vaginal bleeding. Repeat abdominal exam benign. Patient discharged stable condition appearing well - Lab Data Result diagrams: 03/26/18 13:08 03/26/18 13:08 Lab Results 03/26/18 03/26/18 03/26/18 Range/Units 12:59 12:59 13:08 WBC (3.8-10.6) k/uL RBC (3.80-5.40) m/uL Hgb (11.4-16.0) gm/dL Hct (34.0-46.0) % MCV (80.0-100.0) fL MCH (25.0-35.0) pg MCHC (31.0-37.0) g/dL RDW (11.5-15.5) % Plt Count (150-450) k/uL Neutrophils % % Lymphocytes % % Monocytes % % Eosinophils % % Basophils % % Neutrophils # (1.3-7.7) k/uL Lymphocytes # (1.0-4.8) k/uL Monocytes # (0-1.0) k/uL Eosinophils # (0-0.7) k/uL Basophils # (0-0.2) k/uL Sodium 138 (137-145) mmol/L Potassium 3.5 (3.5-5.1) mmol/L Chloride 108 H (98-107) mmol/L Carbon Dioxide 17 L (22-30) mmol/L Anion Gap 13 mmol/L BUN 12 (7-17) mg/dL Creatinine 0.66 (0.52-1.04) mg/dL Est GFR (CKD-EPI)AfAm >90 (>60 ml/min/1.73 sqM) Est GFR (CKD-EPI)NonAf >90 (>60 ml/min/1.73 sqM) Glucose 101 H (74-99) mg/dL Calcium 9.4 (8.4-10.2) mg/dL Total Bilirubin 0.5 (0.2-1.3) mg/dL AST 20 (14-36) U/L ALT 30 (9-52) U/L Alkaline Phosphatase 71 (38-126) U/L Total Protein 6.7 (6.3-8.2) g/dL Albumin 3.9 (3.5-5.0) g/dL Amylase 73 (30-110) U/L Lipase 87 (23-300) U/L Urine Color Yellow Urine Appearance Cloudy H (Clear) Urine pH 6.0 (5.0-8.0) Ur Specific [place] 1.020 (1.001-1.035) Urine Protein Trace H (Negative) Urine Glucose (UA) Negative (Negative) Urine Ketones 2+ H (Negative) Urine Blood Small H (Negative) Urine Nitrite Negative (Negative) Urine Bilirubin Negative (Negative) Urine Urobilinogen <2.0 (<2.0) mg/dL Ur Leukocyte Esterase Small H (Negative) Urine RBC 21 H (0-5) /hpf Urine WBC 3 (0-5) /hpf Ur Squamous Epith Cells 3 (0-4) /hpf Urine Bacteria Moderate H (None) /hpf Urine Mucus Occasional H (None) /hpf Blood Type A Positive Blood Type Recheck No 03/26/18 Range/Units 13:08 WBC 18.7 H (3.8-10.6) k/uL RBC 5.00 (3.80-5.40) m/uL Hgb 15.0 (11.4-16.0) gm/dL Hct 43.3 (34.0-46.0) % MCV 86.5 (80.0-100.0) fL MCH 30.0 (25.0-35.0) pg MCHC 34.7 (31.0-37.0) g/dL RDW 13.2 (11.5-15.5) % Plt Count 353 (150-450) k/uL Neutrophils % 80 % Lymphocytes % 15 % Monocytes % 4 % Eosinophils % 0 % Basophils % 0 % Neutrophils # 15.0 H (1.3-7.7) k/uL Lymphocytes # 2.7 (1.0-4.8) k/uL Monocytes # 0.7 (0-1.0) k/uL Eosinophils # 0.1 (0-0.7) k/uL Basophils # 0.1 (0-0.2) k/uL Sodium (137-145) mmol/L Potassium (3.5-5.1) mmol/L Chloride (98-107) mmol/L Carbon Dioxide (22-30) mmol/L Anion Gap mmol/L BUN (7-17) mg/dL Creatinine (0.52-1.04) mg/dL Est GFR (CKD-EPI)AfAm (>60 ml/min/1.73 sqM) Est GFR (CKD-EPI)NonAf (>60 ml/min/1.73 sqM) Glucose (74-99) mg/dL Calcium (8.4-10.2) mg/dL Total Bilirubin (0.2-1.3) mg/dL AST (14-36) U/L ALT (9-52) U/L Alkaline Phosphatase (38-126) U/L Total Protein (6.3-8.2) g/dL Albumin (3.5-5.0) g/dL Amylase (30-110) U/L Lipase (23-300) U/L Urine Color Urine Appearance (Clear) Urine pH (5.0-8.0) Ur Specific [place] (1.001-1.035) Urine Protein (Negative) Urine Glucose (UA) (Negative) Urine Ketones (Negative) Urine Blood (Negative) Urine Nitrite (Negative) Urine Bilirubin (Negative) Urine Urobilinogen (<2.0) mg/dL Ur Leukocyte Esterase (Negative) Urine RBC (0-5) /hpf Urine WBC (0-5) /hpf Ur Squamous Epith Cells (0-4) /hpf Urine Bacteria (None) /hpf Urine Mucus (None) /hpf Blood Type Blood Type Recheck Disposition Clinical Impression: Left sided abdominal pain, UTI (urinary tract infection) Disposition: HOME SELF-CARE Condition: Good Instructions (If sedation given, give patient instructions): Urinary Tract Infection in (ED) Additional Instructions: Please use medication as discussed. Please follow-up with OBGYN in next 2 days. Please return to emergency room if the symptoms increase or worsen or for any other concerns. Prescriptions: Cephalexin [Keflex] 500 mg PO Q12HR 5 Days #10 cap Is patient prescribed a controlled substance at d/c from ED?: No Referrals: Karma العلي MD [Primary Care Provider] - 1-2 days Maria Fernanda Bruno DO [Doctor of Osteopathic Medicine] - 1-2 days Time of Disposition: 15:27
[2018-03-26 16:31] VITALS: BP 130/81; TEMP 97.6
[2018-03-26 16:35] VITALS: PULSE 89
== END 2018-03-26 16:30 | disposition home or self-care (01) ==
LOC: EC 12:23
DX: O23.41 Unspecified infection of urinary tract in pregnancy, first trimester (principal); O99.89 Other specified diseases and conditions complicating pregnancy, childbirth and the puerperium; R39.15 Urgency of urination; R11.0 Nausea; Z3A.09 9 weeks gestation of pregnancy; Z53.20 Procedure and treatment not carried out because of patient's decision for unspecified reasons
CPT/HCPCS: 36415; 86900; 86901; 80053; 82150; 83690; 85025; 81001; 87086; 76801; 76770; 99284; 96374; 96361 ×3; 96372; J2405; J0696